=== PATIENT | male | born 2000 | race Caucasian/White ===

== ENCOUNTER 2020-04-07 17:46 | Emergency (ER) | payer OTHER ==
--- NOTE | 2020-04-07 18:13 | PDOC ---
History of Present Illness - General Chief Complaint: Allergic Reaction Stated Complaint: ALLRGIC REACTION Time Seen by Provider: 04/07/20 17:50 - History of Present Illness Initial Comments: 04/07/20 17:58 19 M with nut allergy presented to the ED with anaphylatic response. Four hours ago, He ingested Kind bar which contained certain nuts. Subsequently, he developed anaphylatic response. Developed hives, throat clog, vomiting. He immediately take PO 50 mg benadryl from home. His mom brought him to the Urgent care where they gave him an 125 mg solumedrol and 1 epi pen injection on the left lateral thigh. He then was wheeled to the ED. Upon arrival, he was calm and appeared stable. He denies fever, chill, SOB, difficulty breathing, chest pain, change of vision. Position ROS is mild moderate nauseating feeling. PMH: none PSH: none Allergy: spandex, certain nuts ( cashew, pistachio..), shellfish Med: none SS: denies alcohol, smoking, drugs GENERAL/CONSTITUTIONAL: No fever or chills. No weakness. HEAD, EYES, EARS, NOSE AND THROAT: No change in vision. No ear pain or discharge. No sore throat. CARDIOVASCULAR: No chest pain or shortness of breath. RESPIRATORY: No cough, wheezing, or hemoptysis. Mild nausea feeling. GASTROINTESTINAL: No vomiting, diarrhea or constipation. GENITOURINARY: No dysuria, frequency, or change in urination. MUSCULOSKELETAL: No joint or muscle swelling or pain. No neck or back pain. SKIN: Old rash on the trunk. NEUROLOGIC: No headache, vertigo, loss of consciousness, or change in strength/sensation. ENDOCRINE: No increased thirst. No abnormal weight change. HEMATOLOGIC/LYMPHATIC: No anemia, easy bleeding, or history of blood clots. ALLERGIC/IMMUNOLOGIC: allergy to nuts and shelfish. Past History - Medical History Allergies/Adverse Reactions: Allergies Allergy/AdvReac Type Severity Reaction Status Date / Time cashew nut Allergy Severe Swelling Verified 04/07/20 18:11 pistachio nut Allergy Severe Swelling Verified 04/07/20 18:11 shellfish derived Allergy Severe Verified 04/07/20 18:11 Home Medications: Ambulatory Orders Epinephrine [Epipen 2-Malick] 0.3 mg IJ ASDIR #1 kit 07/05/20 Prednisone [Prednisone 50 MG TABLETS] 40 mg PO DAILY 3 Days #3 tablet 04/07/20 *Physical Exam - Physical Exam General Appearance: Yes: Nourished, Appropriately Dressed HEENT: positive: EOMI, ALEXYS Respiratory/Chest: positive: Lungs Clear, Normal Breath Sounds, Other (no wheezes) Cardiovascular: positive: Regular Rhythm, Regular Rate, S1, S2 Gastrointestinal/Abdominal: positive: Normal Bowel Sounds, Soft Musculoskeletal: positive: Normal Inspection Extremity: positive: Normal Capillary Refill, Normal Inspection, Normal Range of Motion Integumentary: positive: Normal Color, Dry, Warm, Other (sporatic mild rashes on the body, but this is before the anaphylatic response. 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 He was assessed and evaluated. He is stable overall. Airway is patent, Breathing was clear, and bilateral, Hemodynamically stable. Will observe him for a couple hours. If he is fine, then will d/c with EPI pen and solumedrol taper over 3 days. Discharge - Discharge Information Problems reviewed: Yes Clinical Impression/Diagnosis: Allergic Condition: Stable Disposition: HOME - Additional Discharge Information Prescriptions: Epinephrine [Epipen 2-Malick] 0.3 mg IJ ASDIR #1 kit Prednisone [Prednisone 50 MG TABLETS] 40 mg PO DAILY 3 Days #3 tablet - Follow up/Referral - Patient Discharge Instructions Additional Instructions: Patient went to the ED with anaphylatic response which resolved from epi pen and solumedrol from the urgent care. We observed him over a couple hours. Ordered him 2 epi pen for home usage, and 40 mg. prednisone taper for 3 days. If worsening whether you see rashes, can't breath, hives, please come back to the ED. - Post Discharge Activity
--- NOTE | 2020-04-07 18:16 | PDOC ---
Documentation entered by Vernon Valencia SCRIBE, acting as scribe for Vonnie House MD. Vonnie House MD: This documentation has been prepared by the Erik jackson Nirvannie, SCRIBE, under my direction and personally reviewed by me in its entirety. I confirm that the documentation accurately reflects all work, treatment, procedures, and medical decision making performed by me. Attending Attestation - Resident Resident Name: Steve Fournier - ED Attending Attestation I have performed the following: I have examined & evaluated the patient, The case was reviewed & discussed with the resident, I agree w/resident's findings & plan, Exceptions are as noted - HPI HPI: 04/07/20 18:12 The patient is a 19 year old male with a significant past medical history of anaphylaxis (approx 3 mo ago, known allergy of cashews) who presents to the ED with an allergic reaction. As per patient, he ate a Kind granola bar (possible trace cashews) at approximately 3:50PM and had an episode of emesis at 4:40pm. He notes taking 50mg of Benadryl then went to urgent care at which time he was given Epinephrine and 125mg of Solumedrol at 5:17pm and went sent to the ED via EMS. - Physicial Exam PE: 04/07/20 18:33 slender 19 yo male resting comfortably head ncat neck supple ororpharynx uvula midline lungs cta b/l cvs [id number] abdomen flat skin warm and dry, no hives neuro axox3,motor strength 5/5 b/l - Medical Decision Making 04/07/20 18:28 slender 19 yo male with h/o nut allergies ate food bar with cashews and developed hives , felt he could not breath and vomited. His mother took him to [facility] urgent care where he received solumedrol and epi Discharge - Discharge Information Problems reviewed: Yes Clinical Impression/Diagnosis: Allergic Condition: Stable Disposition: HOME - Additional Discharge Information Prescriptions: Epinephrine [Epipen 2-Malick] 0.3 mg IJ ASDIR #1 kit Prednisone [Prednisone 50 MG TABLETS] 40 mg PO DAILY 3 Days #3 tablet - Follow up/Referral - Patient Discharge Instructions Additional Instructions: Patient went to the ED with anaphylatic response which resolved from epi pen and solumedrol from the urgent care. We observed him over a couple hours. Ordered him 2 epi pen for home usage, and 40 mg. prednisone taper for 3 days. If worsening whether you see rashes, can't breath, hives, please come back to the ED. - Post Discharge Activity
[2020-04-07 18:33] VITALS: PULSE 60; TEMP 98.9; BMI 21.9
[2020-04-07 20:30] VITALS: BP 115/67
== END 2020-04-07 20:31 | disposition home or self-care (01) ==
LOC: JER 17:46
DX: T78.40XA Allergy, unspecified, initial encounter (principal)
CPT/HCPCS: 99283-25